=== PATIENT | male | born 1965 | race Caucasian/White ===

== ENCOUNTER 2024-06-19 11:21 | Emergency (ER) | payer OTHER ==
[~2024-06-19] VITALS: Ht 182.9 cm; Wt 124.0 kg
[2024-06-19] VITALS (7 sets, daily range): BP systolic 111–175; BP diastolic 44–85
[~2024-06-19 11:21] MED LIST: GLIPIZIDE ER10 M1 PO; LEVOTHYROXIN50 MCG PO; METFORMIN HCL1000 MG PO
[2024-06-19 13:07] LABS: BASO% 0.3 % (0-3); EOS% 0.6 % (0-8); HEMATOCRIT 40.8 % (39.0-50.0); HEMOGLOBIN 14.2 g/dl (14.0-18.0); IMMATURE GRANULOCYTES 0.1 % (0.0-5.0); LYMPH% 8.2 % (15-41); MEAN CELL VOLUME 90.3 fL CALC (80.0-100.0); MEAN CORPUSCULAR HGB 31.4 pG CALC (26.0-32.0); MEAN CORPUSCULAR HGB CONC 34.8 g/dL CAL (32.0-36.0); MONO% 7.4 % (2-13); NEUT# 7.75 thou/uL (1.82-7.42); NEUT% 83.4 % (42-76); RED BLOOD COUNT 4.52 mill/uL (4.70-6.10); RED CELL DISTRI WIDTH 12.1 % (11.5-15.5)
[2024-06-19 13:26] LABS: ALBUMIN 4.1 g/dL (3.2-5.0); CREATININE 0.7 mg/dL (0.7-1.3); POTASSIUM 4.5 mmol/l (3.5-5.1); TOTAL PROTEIN 7.1 g/dL (6.3-8.2)
[2024-06-19 13:34] LABS: BILIRUBIN, TOTAL 1.5 mg/dL (0.2-1.3)
[2024-06-19] MEDS ORDERED: SODIUM CHLORIDE 0.9% 1,000 ML IV ONE (13:40)
[2024-06-19] MEDS ORDERED: INSULIN REGULAR (HUMAN) 100 UNIT/ML INJ IV ONE (13:40)
[2024-06-19] MEDS ORDERED: BACITRACIN ZINC 0.9 GM/PAK TOP ONE (14:50)
[2024-06-19] MEDS ORDERED: AMOX/K CLAV875 M1 PO (14:53)
== END 2024-06-19 15:20 | disposition home or self-care (01) | DRG 639 ==
LOC: ED 11:21
PROVIDERS: Clinical Nurse Specialist Emergency
DX: E11.621 Type 2 diabetes mellitus with foot ulcer (principal); L97.521 Non-pressure chronic ulcer of other part of left foot limited to breakdown of skin; E11.42 Type 2 diabetes mellitus with diabetic polyneuropathy; Z79.84 Long term (current) use of oral hypoglycemic drugs

== ENCOUNTER 2024-06-24 10:25 | Inpatient (IN) | payer OTHER ==
[~2024-06-24] VITALS: Ht 182.9 cm; Wt 120.5 kg
[~2024-06-24 10:25] MED LIST changes: +AMOX/K CLAV875 M1 PO
[2024-06-24 11:06] VITALS: BP 144/80
[2024-06-24 11:23] LABS: BASO% 0.6 % (0-3); EOS% 2.2 % (0-8); HEMATOCRIT 40.6 % (39.0-50.0); HEMOGLOBIN 14.4 g/dl (14.0-18.0); IMMATURE GRANULOCYTES 0.3 % (0.0-5.0); LYMPH% 18.1 % (15-41); MEAN CELL VOLUME 86.9 fL CALC (80.0-100.0); MEAN CORPUSCULAR HGB 30.8 pG CALC (26.0-32.0); MEAN CORPUSCULAR HGB CONC 35.5 g/dL CAL (32.0-36.0); MONO% 7.4 % (2-13); NEUT# 5.6 thou/uL (1.82-7.42); NEUT% 71.4 % (42-76); RED BLOOD COUNT 4.67 mill/uL (4.70-6.10); RED CELL DISTRI WIDTH 11.7 % (11.5-15.5)
[2024-06-24] MEDS ORDERED: GLIPIZIDE10 M3 PO (11:41)
[2024-06-24] MEDS ORDERED: OZEMPIC2 MG SC (11:43)
[2024-06-24 11:50] LABS: CREATININE 0.7 mg/dL (0.7-1.3); POTASSIUM 4.5 mmol/l (3.5-5.1)
[2024-06-24] MEDS ORDERED: Polyethylene Glycol 3350 17 GM/PKT PO PRN (11:55)
[2024-06-24] MEDS ORDERED: ACETAMINOPHEN 325 MG/TAB PO PRN (11:55)
[2024-06-24] MEDS ORDERED: ALUM & MAG HYDROX-SIMETHICONE 30 ML PO PRN (11:55)
[2024-06-24] MEDS ORDERED: LORazepam 0.5 MG/TAB PO PRN (11:55)
[2024-06-24] MEDS ORDERED: DEXTROSE 50% 50 ML/SYR IV PRN (12:00)
[2024-06-24] MEDS ORDERED: DEXTROSE 250 ML IV PRN (12:00)
[2024-06-24] MEDS ORDERED: CEFEPIME HYDROCHLORIDE 2 GM in SODIUM CHLORIDE 0.9% 100 ML IV SCH (13:00)
[2024-06-24] MEDS ORDERED: VANCOMYCIN HCL 1,250 MG in SODIUM CHLORIDE 0.9% 225 ML IV SCH (14:00)
[2024-06-24 14:41] VITALS: BP 128/72
[2024-06-24] MEDS ORDERED: INSULIN LISPRO 100 UNITS/ML ML SC SCH (17:00)
[2024-06-24 17:49] VITALS: BP 143/81
[2024-06-24] MEDS ORDERED: ENOXAPARIN SODIUM 40 MG/0.4 ML SYR SC SCH (21:00)
[2024-06-25 04:28] VITALS: BP 142/79
[2024-06-25 06:41] LABS: BASO% 0.8 % (0-3); EOS% 2.8 % (0-8); HEMATOCRIT 37.3 % (39.0-50.0); HEMOGLOBIN 13.3 g/dl (14.0-18.0); IMMATURE GRANULOCYTES 0.3 % (0.0-5.0); LYMPH% 22.9 % (15-41); MEAN CELL VOLUME 88.8 fL CALC (80.0-100.0); MEAN CORPUSCULAR HGB 31.7 pG CALC (26.0-32.0); MEAN CORPUSCULAR HGB CONC 35.7 g/dL CAL (32.0-36.0); MONO% 8.5 % (2-13); NEUT# 3.85 thou/uL (1.82-7.42); NEUT% 64.7 % (42-76); RED BLOOD COUNT 4.2 mill/uL (4.70-6.10); RED CELL DISTRI WIDTH 11.8 % (11.5-15.5)
[2024-06-25 06:48] LABS: ALBUMIN 3.4 g/dL (3.2-5.0); CREATININE 0.6 mg/dL (0.7-1.3); MAGNESIUM 1.5 mg/dL (1.6-2.3); POTASSIUM 4.2 mmol/l (3.5-5.1); TOTAL PROTEIN 6.1 g/dL (6.3-8.2)
[2024-06-25 06:49] LABS: BILIRUBIN, TOTAL 0.5 mg/dL (0.2-1.3)
[2024-06-25 07:00] VITALS: BP 141/79
[2024-06-25] MEDS ORDERED: PANTOPRAZOLE SODIUM Sesquihydr 40 MG/TAB PO SCH (09:00)
[2024-06-25 10:19] LABS: URINE BILIRUBIN - DIPSTICK Negative (NEGATIVE); URINE BLOOD DIPSTICK Negative (NEGATIVE); URINE GLUCOSE - DIPSTICK 500 mg/dL (NEGATIVE); URINE KETONE Negative (NEGATIVE); URINE LEUK ESTERASE Negative (NEGATIVE); URINE NITRITE - DIPSTICK Negative (Negative); URINE PH 6.5 (4.5-8.0); URINE PROTEIN - DIPSTICK Negative (NEG-TRACE); URINE UROBILINOGEN - DIPSTICK 0.2 E.U./dL (0.2)
[2024-06-25 10:32] LABS: URINE COLOR Yellow
[2024-06-25] MEDS ORDERED: INSULIN GLARGINE 100 UNITS/ML SC SCH (11:30)
[2024-06-25] MEDS ORDERED: MAGNESIUM SULFATE HEPTAHYDRATE 50 ML IV SCH (13:30)
[2024-06-25 14:14] VITALS: BP 148/85
[2024-06-25] MEDS ORDERED: metFORMIN HYDROCHLORIDE 500 MG/TAB PO SCH (17:30)
[2024-06-25 19:18] VITALS: BP 129/77
[2024-06-26 04:16] VITALS: BP 125/82
[2024-06-26 07:17] VITALS: BP 136/79
[2024-06-26 07:18] LABS: BASO% 0.5 % (0-3); EOS% 3.1 % (0-8); HEMATOCRIT 36.7 % (39.0-50.0); HEMOGLOBIN 13.1 g/dl (14.0-18.0); IMMATURE GRANULOCYTES 0.3 % (0.0-5.0); LYMPH% 19.9 % (15-41); MEAN CELL VOLUME 88.2 fL CALC (80.0-100.0); MEAN CORPUSCULAR HGB 31.5 pG CALC (26.0-32.0); MEAN CORPUSCULAR HGB CONC 35.7 g/dL CAL (32.0-36.0); MONO% 7.8 % (2-13); NEUT# 4.37 thou/uL (1.82-7.42); NEUT% 68.4 % (42-76); RED BLOOD COUNT 4.16 mill/uL (4.70-6.10); RED CELL DISTRI WIDTH 11.8 % (11.5-15.5)
[2024-06-26 07:46] LABS: ALBUMIN 3.3 g/dL (3.2-5.0); BILIRUBIN, TOTAL 0.6 mg/dL (0.2-1.3); CREATININE 0.6 mg/dL (0.7-1.3); MAGNESIUM 1.7 mg/dL (1.6-2.3); POTASSIUM 4.4 mmol/l (3.5-5.1); TOTAL PROTEIN 6.1 g/dL (6.3-8.2)
[2024-06-26] MEDS ORDERED: SODIUM CHLORIDE 0.9% 0 ML IV ONE (13:33)
[2024-06-26 14:46] VITALS: BP 121/64
[2024-06-26] MEDS ORDERED: VANCOMYCIN HCL 1 GM in SODIUM CHLORIDE 0.9% 250 ML IV SCH (16:00)
[2024-06-26 16:55] VITALS: BP 121/64
[2024-06-26 18:35] VITALS: BP 131/67
[2024-06-27 04:31] VITALS: BP 151/80
[2024-06-27 05:29] VITALS: BP 132/70
[2024-06-27 10:20] LABS: ALBUMIN 3.8 g/dL (3.2-5.0); BILIRUBIN, TOTAL 0.7 mg/dL (0.2-1.3); CREATININE 0.6 mg/dL (0.7-1.3); POTASSIUM 4.5 mmol/l (3.5-5.1); TOTAL PROTEIN 6.6 g/dL (6.3-8.2)
[2024-06-27] MEDS ORDERED: DEXTROSE 250 ML IV PRN (11:50)
[2024-06-27] MEDS ORDERED: INSULIN GLARGINE 100 UNITS/ML SC SCH (12:30)
[2024-06-27 15:10] VITALS: BP 154/92
[2024-06-27 18:45] VITALS: BP 123/68
[2024-06-28 05:00] LABS: BASO% 0.7 % (0-3); EOS% 3.3 % (0-8); HEMATOCRIT 38.6 % (39.0-50.0); HEMOGLOBIN 13.6 g/dl (14.0-18.0); IMMATURE GRANULOCYTES 0.4 % (0.0-5.0); MEAN CELL VOLUME 89.1 fL CALC (80.0-100.0); MEAN CORPUSCULAR HGB 31.4 pG CALC (26.0-32.0); MEAN CORPUSCULAR HGB CONC 35.2 g/dL CAL (32.0-36.0); MONO% 8.9 % (2-13); NEUT# 4.65 thou/uL (1.82-7.42); NEUT% 64.7 % (42-76); RED BLOOD COUNT 4.33 mill/uL (4.70-6.10); RED CELL DISTRI WIDTH 11.8 % (11.5-15.5)
[2024-06-28 05:31] LABS: ALBUMIN 3.6 g/dL (3.2-5.0); BILIRUBIN, TOTAL 0.7 mg/dL (0.2-1.3); CREATININE 0.7 mg/dL (0.7-1.3); MAGNESIUM 1.6 mg/dL (1.6-2.3); POTASSIUM 4.2 mmol/l (3.5-5.1); TOTAL PROTEIN 6.5 g/dL (6.3-8.2)
[2024-06-28 06:51] VITALS: BP 116/62
[2024-06-28] MEDS ORDERED: INSULIN GLARGINE 100 UNITS/ML SC SCH (09:00)
[2024-06-28] MEDS ORDERED: ATORVASTATIN CA40 MG PO (10:35)
[2024-06-28] MEDS ORDERED: LANTUS SOL100 UNIT/M SC (10:35)
[2024-06-28] MEDS ORDERED: BACTRIM DS1 TAB PO (10:35)
[2024-06-28] MEDS ORDERED: ASPIRIN 81 LOW81 MG PO (10:36)
== END 2024-06-28 11:20 | disposition home or self-care (01) | DRG 638 ==
LOC: MS2 10:25
PROVIDERS: Internal Medicine; Nurse Practitioner Family; ADMIT Internal Medicine; ATTEND Internal Medicine
DX: E11.621 Type 2 diabetes mellitus with foot ulcer (principal); L03.116 Cellulitis of left lower limb; L97.521 Non-pressure chronic ulcer of other part of left foot limited to breakdown of skin; E11.42 Type 2 diabetes mellitus with diabetic polyneuropathy; E11.65 Type 2 diabetes mellitus with hyperglycemia; E11.51 Type 2 diabetes mellitus with diabetic peripheral angiopathy without gangrene; Z79.84 Long term (current) use of oral hypoglycemic drugs
CPT/HCPCS: J0692; J1650; J1815; J3370; J3475